=== PATIENT | male | born 1980 | race American Indian/Alaskan Native ===

== ENCOUNTER 2020-02-26 09:53 | Emergency (ER) | payer SELFPAY ==
--- NOTE | 2020-02-26 10:56 | Emergency Department Report ---
ED Palpitations HPI - General Stated Complaint: SVT Time Seen by Provider: 02/26/20 10:37 Source: patient Mode of arrival: Ambulatory Limitations: No Limitations - History of Present Illness Initial Comments: Chief complaint: "My heart was beating fast." HPI: This is a 40-year-old male with history of rapid heartbeat who presents with palpitations rapid palpitations via EMS. He received medication which aborted the abnormal rhythm. Tracing from EKG revealed SVT. Repeat tracing revealed normal sinus rhythm. He had one previous episode of SVT. He was living in [facility] at that time. He has been in his normal state of health with exception of sinus pressure nasal congestion. He has a history of sinus infection after sinus surgery related to tooth extraction. MD Complaint: rapid heart beat -: Sudden, This morning Context: occured during rest Arrythmia History: SVT Associated Symptoms: other (Sinus pressure nasal congestion) Treatments Prior to Arrival: adenosine - Related Data Previous Rx's Medication Instructions Recorded Last Taken Type Sulfamethoxazole/Trimethoprim 1 each PO BID 14 Days #28 tablet 02/26/20 Unknown Rx [Bactrim DS TAB] Allergies Allergy/AdvReac Type Severity Reaction Status Date / Time No Known Allergies Allergy Unverified 02/26/20 11:08 ED Review of Systems ROS: Stated complaint: SVT Other details as noted in HPI Comment: All other systems reviewed and negative Constitutional: denies: fever, malaise ENT: congestion Respiratory: denies: cough, shortness of breath Cardiovascular: denies: chest pain Gastrointestinal: denies: abdominal pain, nausea, vomiting ED Past Medical Hx - Past Medical History Previous Medical History?: Yes Additional medical history: SVT - Surgical History Past Surgical History?: Yes Additional Surgical History: Tooth extraction, sinus surgery - Family History Family history: hypertension - Social History Smoking Status: Current Every Day Smoker Substance Use Type: Alcohol - Medications Home Medications: Home Medications Medication Instructions Recorded Confirmed Last Taken Type Sulfamethoxazole/Trimethoprim 1 each PO BID 14 Days #28 tablet 02/26/20 Unknown Rx [Bactrim DS TAB] ED Physical Exam - General General appearance: alert, in no apparent distress - Head Head exam: Present: atraumatic, normocephalic - Eye Eye exam: Present: normal appearance - ENT ENT exam: Present: mucous membranes moist, other (Bilateral maxillary sinus pressure on palpation) - Neck Neck exam: Present: normal inspection, full ROM - Respiratory Respiratory exam: Present: normal lung sounds bilaterally. Absent: respiratory distress, wheezes, rales, rhonchi - Cardiovascular Cardiovascular Exam: Present: regular rate, normal rhythm, normal heart sounds. Absent: systolic murmur, diastolic murmur, rubs, gallop - GI/Abdominal GI/Abdominal exam: Present: soft, normal bowel sounds. Absent: distended, tenderness, guarding, rebound - Rectal Rectal exam: Present: deferred - Extremities Exam Extremities exam: Present: normal inspection - Neurological Exam Neurological exam: Present: alert, oriented X3 - Psychiatric Psychiatric exam: Present: normal affect, normal mood - Skin Skin exam: Present: warm, dry, intact, normal color. Absent: rash ED Course Vital Signs 02/26/20 02/26/20 02/26/20 11:01 11:28 11:29 Temperature 98.0 F Pulse Rate 92 H Respiratory 18 Rate Blood Pressure 132/99 O2 Sat by Pulse 99 Oximetry 02/26/20 02/26/20 02/26/20 11:30 12:00 12:30 Temperature Pulse Rate 91 H 88 88 Respiratory 20 21 22 Rate Blood Pressure 132/99 123/85 123/85 O2 Sat by Pulse Oximetry 02/26/20 02/26/20 13:00 13:30 Temperature Pulse Rate 89 86 Respiratory 21 23 Rate Blood Pressure 96/57 132/94 O2 Sat by Pulse Oximetry ED Medical Decision Making - Lab Data Result diagrams: 02/26/20 12:34 02/26/20 12:34 - EKG Data -: EKG Interpreted by Mo EKG shows normal: sinus rhythm, axis, intervals, QRS complexes Rate: tachycardia - EKG Data 02/26/20 10:56 EKG obtained 1051 EKG interpreted by nv Sinus tachycardia rate 100 bpm abnormal axis no ST elevation no delta waves to indicate WPW nonischemic T wave pattern 02/26/20 10:56 - Medical Decision Making recurrent SVT resolved with Adenosine. No indication of WPW. Patient did not have recurrence of symptoms. I provided education regarding vagal manevers, referred to aluminizer providced sinusitis due to severe symptoms and duration > 2 weeks antibiotic are indicated, patient given Bactrim I have reviewed labs. Leukocytosis present, hx of dental infection and current sinusitis. Chemistry wnl Laboratory Results - last 24 hr 02/26/20 02/26/20 12:34 12:34 WBC 13.2 H RBC 4.38 Hgb 14.1 Hct 41.3 MCV 95 H MCH 32 MCHC 34 RDW 12.9 L Plt Count 361 Lymph % (Auto) 8.4 L [place] % (Auto) 7.1 Eos % (Auto) 0.2 Baso % (Auto) 0.2 Lymph # (Auto) 1.1 L [place] # (Auto) 0.9 H Eos # (Auto) 0.0 Baso # (Auto) 0.0 Seg Neutrophils % 84.1 H Seg Neutrophils # 11.1 H Sodium 139 Potassium 4.5 Chloride 102.9 Carbon Dioxide 29 Anion Gap 12 BUN 7 L Creatinine 0.7 L Estimated GFR > 60 BUN/Creatinine Ratio 10 Glucose 105 H Calcium 9.4 Phosphorus 2.40 L Magnesium 1.80 Critical care attestation.: If time is entered above; I have spent that time in minutes in the direct care of this critically ill patient, excluding procedure time. ED Disposition Clinical Impression: Acute sinusitis, SVT (supraventricular tachycardia) Disposition: DC- TO HOME OR SELFCARE Is pt being admited?: No Does the pt Need Aspirin: No Condition: Stable Instructions: Sinusitis, Adult, [id number], Supraventricular Tachycardia, Adult, [id number] Prescriptions: Sulfamethoxazole/Trimethoprim [Bactrim DS TAB] 1 each PO BID 14 Days #28 tablet Referrals: RAFFY LUCERO MD [Staff Physician] - 3-5 Days KAREN ONTIVEROS MD [Staff Physician] - 3-5 Days Forms: Work/School Release Form(ED)
[2020-02-26 12:52] LABS: Basophils % (Auto) 0.2 % (0.0-1.8); Eosinophils % (Auto) 0.2 % (0.0-4.3); Hematocrit 41.3 % (35.5-45.6); Hemoglobin 14.1 gm/dl (11.8-15.2); Lymphocytes # (Auto) 1.1 K/mm3 (1.2-5.4); Lymphocytes % (Auto) 8.4 % (13.4-35.0); Mean Corpuscular HGB Conc 34 % (32-34); Mean Corpuscular Volume 95 fl (84-94); Monocytes # (Auto) 0.9 K/mm3 (0.0-0.8); Monocytes % (Auto) 7.1 % (0.0-7.3); Platelet Count 361 K/mm3 (140-440); Red Blood Count 4.38 M/mm3 (3.65-5.03); Red Cell Distribution Width 12.9 % (13.2-15.2)
[2020-02-26 13:14] LABS: Blood Urea Nitrogen 7 mg/dL (9-20); Calcium 9.4 mg/dL (8.4-10.2); Hemolysis Index 13
[2020-02-26 13:17] LABS: BUN/Creatinine Ratio 10
[2020-02-26 15:00] VITALS: BP 132/94
[2020-02-26] MEDS ORDERED: IBUPROFEN 800 MG TAB ONE (15:01)
[2020-02-26] MEDS ORDERED: IBUPROFEN 800 MG TAB PO ONE (15:03)
== END 2020-02-26 15:43 | disposition home or self-care (01) ==
LOC: ED 09:53
DX: J01.80 Other acute sinusitis (principal); I47.1 Supraventricular tachycardia; F17.200 Nicotine dependence, unspecified, uncomplicated; Z98.890 Other specified postprocedural states
CPT/HCPCS: 36415; 80048; 83735; 84100; 85025; 93005; 99283